=== PATIENT | male | born 1985 | race Two or more races ===

== ENCOUNTER 2022-12-07 10:36 | Outpatient (REF) | payer MEDICAID, SELFPAY ==
[2022-12-07 15:13] LABS: CT PCR NOT DETECTED (Not Detect.); NG PCR NOT DETECTED (Not Detect.)
[2022-12-10 13:33] LABS: RPR Rapid Plasma Reagin NON-REACTIVE (NON-REACTIVE)
[2022-12-11 15:48] LABS: HIV RNA PCR Qn Copies Not Detected Copies/mL; HIV RNA PCR Qn Log Copies Not Detected Log cps/mL
== END 2022-12-07 10:37 | disposition home or self-care (01) ==
LOC: HO.HHCL 10:36
PROVIDERS: Visit Provider Nurse Practitioner Family
DX: Z11.4 Encounter for screening for human immunodeficiency virus [HIV] (principal); Z11.3 Encounter for screening for infections with a predominantly sexual mode of transmission
CPT/HCPCS: 0353U; 86592; 87536; 87900

== ENCOUNTER 2024-06-20 16:06 | Emergency (ER) | payer MEDICAID, SELFPAY ==
--- NOTE | ~2024-06-20 | XR_ITS ---
CLINICAL HISTORY: pain, injury Radiographs of the right ankle, 3 views Comparison: None Findings: There is no acute fracture or dislocation. 7 mm well corticated ossific fragment distal to the medial malleolus. 5 mm well corticated ossific fragment distal to the medial malleolus. The ankle mortise is congruent. Mild degenerative change. Enthesophyte at the insertion of the Achilles tendon. Bone mineralization is normal. There is a joint effusion. Soft tissue swelling. Impression: No acute fracture. This document has been electronically signed by: Angela Saldivar MD on 06/20/2024 17:30:00
--- NOTE | 2024-06-20 16:21 | ED.GENADULT ---
HPI - General Adult General Chief complaint: Extremity Injury, Lower Stated complaint: R ankle pain x2days Time Seen by Provider: 06/20/24 16:41 Source: patient, family (girlfriend) and EMS Mode of arrival: EMS Limitations: no limitations History of Present Illness ED Provider: JOSEMANUEL DANIEL PA-C HPI narrative: 39 year-old male presents to the ED today via EMS for evaluation of right ankle pain x 2 days. Patient reports pain to the entire ankle, radiating up the leg. Worse with weight-bearing and movement of the ankle. Denies any blunt injury or trauma however symptoms did begin after helping a friend move furniture for 3 days straight when he typically is not active. He has been trying Tylenol without relief. Last dose yesterday. Admits to drinking a large amount of alcohol recently. Denies any history of gout or diabetes. Denies fever, headache, dizziness, numbness/tingling/weakness of the LUE. Denies hx of hardware in the ankle. Denies hx of IVDU. Related Data Previous Rx's ?Medication ?Instructions ?Recorded naproxen 500 mg tablet 500 mg PO Q12H PRN pain (scale 06/20/24 score 1-3) #20 tabs prednisone 20 mg tablet 60 mg (3 x 20 mg) PO DAILY 5 days 06/20/24 #15 tabs Allergies Allergy/AdvReac Type Severity Reaction Status Date / Time No Known Allergies Allergy Verified 06/20/24 16:23 Review of Systems Review of Systems: Yes all other systems are reviewed and are negative PMFSH Past Medical History Attestation statement: The following information was validated with the patient. Source: old records reviewed and nursing notes reviewed Social History Social History Advance Directives: No Advance Directives Information Provided: No Physical Exam ED Vital Signs: Vital Signs - 24 hr 06/20/24 16:22 06/20/24 18:00 Temperature 97.3 F 97.3 F Pulse Rate 70 61 Respiratory Rate 20 16 Blood Pressure 121/74 134/57 L Pulse Oximetry 97 96 Oxygen Delivery Method Room Air Room Air BMI result Body Mass Index 36.9 Afebrile, vital signs stable General: Well appearing, in no acute distress. Skin: Warm, dry, intact. No rashes or lesions. Head: Normocephalic, atraumatic. EENT: Hearing is intact b/l. Conjunctiva clear. Sclera is anicteric. Neck: Supple without LAD. ? Cardiac: Chest wall symmetric. RRR. Lungs: Normal respiratory effort without accessory muscle use. CTA bilaterally. Abdomen: Soft, non-tender, non-distended. No rebound tenderness or guarding. Positive BS x4. Ext: +noted swelling to entire right ankle. No overlying erythema. Limited ROM to flexion/extension secondary to pain. Diffusely tender to palpation without warmth, fluctuance or crepitus. 2+ DP pulse on right foot. negative villagomez test. no calf tenderness. Neuro: AOx3. Normal speech. Course Course Course Narrative: RME performed by Nuvia Conde PA-C. Patient is a 39 year old assigned male at presenting to the emergency department with right ankle pain. Patient states that over the last 2 days he has had right ankle pain after helping someone move. Detailed physical exam and review of systems are deferred to the assistant center director. Imaging ordered. Patient placed back in the waiting room pending room availability and results. Reevaluation(s) Reevaluation #1: Leukocytosis to 17.6 without left shift. No anemia. H&H stable. Chemistry without acute electrolyte abnormality requiring intervention. Uric acid elevated to 7.8. CRP elevated to 2.55. ESR WNL. X-ray right ankle without acute fracture or dislocation. There are 2 well corticated ossific fragments distal to the medial malleoli with mild degenerative changes with associated joint effusion and soft tissue swelling. > physical exam is not consistent with cellulitis or septic joint. he does not have any risk factors for infection I have suspicion that patient is having an acute gout flare. treated with toradol in ED today. tone wrap applied to right ankle. will start patient on presnidone and naproxen. advised PCP follow up. Patient has remained stable throughout ED visit today. Discussed worrisome signs and symptoms and when to return to the ED. All questions answered at this time. Patient is agreeable with disposition and stable for discharge. Medications Administered Discontinued Medications Generic Name Dose Route Start Last Admin Trade Name Freq PRN Reason Stop Dose Admin Ketorolac Tromethamine 30 mg 06/20/24 17:12 06/20/24 17:22 Ketorolac Tromethamine 30 Mg/Ml Vial IM 06/20/24 17:13 30 mg ONCE ONE Administration Procedures Orthopedic Splinting/Casting Injury #1: Side: left Lower Extremity Injury Location: ankle Lower Extremity Immobilizer: Tone wrap Medical Decision Making Medical Decision Making [facility] Narrative: 39 year-old male presents to the ED today via EMS for evaluation of right ankle pain x 2 days. Vital signs stable, afebrile. he is nontoxic appearing and in NAD. On exam, noted swelling to entire right ankle. No overlying erythema. Limited ROM to flexion/extension secondary to pain. Diffusely tender to palpation without warmth, fluctuance or crepitus. 2+ DP pulse on right foot. ambulating with limping gait. negative villagomez test. no calf tenderness. Differential diagnosis includes gout, pseuogout, arthritis, tendonitis, fracture, dislocation, msk sprain/strain. Unlikely septic joint, lyme arthritis, NV compromise, threat to limb, compartment syndrome, DVT. Will obtain screening labs/ uric acid, xr. Toradol ordered for pain control. Differential Diagnosis Differential Diagnoses: The differential diagnosis associated with the presentation includes as above. Admission/Observation not indicated. Lab Data [facility] Lab Attestation statement: I reviewed the patient's lab results. as above. 06/20/24 17:29 06/20/24 17:29 Labs: Lab Results 06/20/24 Range/Units 17:29 WBC 17.6 H (4.8-10.8) X10*3/uL RBC 5.49 (4.60-5.80) X10*6/uL Hgb 16.0 (14.0-18.0) g/dl Hct 44.1 (42.0-52.0) % MCV 80.3 (80.0-98.0) fL MCH 29.1 (27.0-33.0) pg MCHC 36.3 H (31.0-36.0) g/dl RDW 12.4 (11.0-16.0) % Plt Count 211 (160-400) X10*3/uL MPV 9.7 (9.4-12.4) fL Immature Gran % (Auto) 0.3 (0.0-0.4) % Neut % (Auto) 76.0 H (45-73) % Lymph % (Auto) 14.7 L (20-40) % Woodruff % (Auto) 8.3 (2-11) % Eos % (Auto) 0.5 (0-4) % Baso % (Auto) 0.2 (0-2) % Lymph # (Auto) 2.6 (1.2-4.9) X10*3/uL Woodruff # (Auto) 1.5 H (0.1-1.2) X10*3/uL Eos # (Auto) 0.1 (0.0-0.4) X10*3/uL Baso # (Auto) 0.0 (0.0-0.2) X10*3/uL Abs Immat Gran (auto) 0.06 H (0.00-0.03) X10*3/uL Absolute Neuts (auto) 13.3 H (2.0-8.3) x10*3/uL Absolute Nucleated RBC 0.000 (0.0-0.012) X10*3/uL Nucleated RBC % (auto) 0.0 (0.0-0.2) /100WBC ESR 2 (0-15) MM/HR Sodium 138 (135-145) mmol/L Potassium 3.9 (3.3-5.1) mmol/L Chloride 105 (96-108) mmol/L Carbon Dioxide 23 (22-29) mmol/L Anion Gap 14 (12-20) BUN 10 (9-16) mg/dL Creatinine 0.82 (0.5-1.4) mg/dL Estim Creat Clear Calc 150.1 Estimated GFR > 60 Random Glucose 96 (60-115) mg/dL Uric Acid 7.8 H (3.4-7.0) mg/dL Calcium 9.2 (8.4-10.2) mg/dL Total Bilirubin 1.3 H (0.0-1.0) mg/dL AST 25 (5-37) U/L ALT 46 H (0-40) U/L Alkaline Phosphatase 74 (39-117) U/L C-Reactive Protein 2.55 H (< or = 0.50) mg/dL Total Protein 7.2 (6.5-8.0) g/dL Albumin 4.1 (3.5-5.0) g/dL Independent Interpretation I performed an independent interpretation of an: Plain X-Ray Interpretation: xr right ankle without fracture Radiology Impression Discussion of test interpretation with radiology: I have reviewed the radiologist's reading. Radiologist Impression: Procedure(s): XR ankle RT min 3V Accession Number(s): [id number] cc: Nuvia Conde; Physician,Unknown ~ CLINICAL HISTORY: pain, injury Radiographs of the right ankle, 3 views Comparison: None Findings: There is no acute fracture or dislocation. 7 mm well corticated ossific fragment distal to the medial malleolus. 5 mm well corticated ossific fragment distal to the medial malleolus. The ankle mortise is congruent. Mild degenerative change. Enthesophyte at the insertion of the Achilles tendon. Bone mineralization is normal. There is a joint effusion. Soft tissue swelling. Impression: No acute fracture. This document has been electronically signed by: Angela Saldivar MD on 06/20/2024 17:30:00 Independent Historian Clinical information obtained from an independent historian. History obtained from or confirmed by: EMS External Record Review External record reviewed: Inpatient record Prescription Management I considered prescription management with: Pain Medication (Naproxen) and Other (Prednisone) Social Determinants Patient?s care significantly limited by Social Determinants of Health including: Other Social Determinant of Health Discharge Plan Discharge Clinical Impression: Gout Patient Disposition: Home, Self-Care Instructions: Low Purine Diet (ED), Gout (ED) Additional Instructions: You were evaluated in the ED today for your right ankle pain. Your work up is concerning for gout. See home care instructions. I am starting you on prednisone. This is a steroid. Take this to completion over the next 5 days. If you are diabetic, please monitor your sugars at home as this can elevate them. Treatment for this is also with NSAIDs (anti-inflammatory medications). I am sending naproxen to your pharmacy. Do not take this with other NSAIDs such as Motrin as this can cause increased risk of GI bleeding. Follow up with your PCP. Return with new or worsening symptoms. In the case of an emergency, call 911. Prescriptions: New naproxen 500 mg tablet 500 mg PO Q12H PRN (Reason: pain (scale score 1-3)) Qty: 20 0RF prednisone 20 mg tablet 60 mg PO DAILY 5 Days Qty: 15 0RF Referrals: Physician,Unknown J [Primary Care Provider] - Interventions: ED Discharge Assessment Last Done: 06/20/24 19:02 Discharge Date/Time: 06/20/24 19:02 Print Language: Vietnamese
[2024-06-20 16:22] VITALS: BP 121/74; PULSE 70; RESP 20; TEMP 36.3; O2SAT 97; BMI 36.9
--- OUTSIDE RECORDS SUMMARY | 2024-06-20 16:50 | XMS_ITS | Clinical Summary ---
Author Organization [facility] Address [address] [place] [address] Care Team Providers Care Segmental Paving Supervisor Name Role Phone Nikki Vickers MD Primary Care Provider [phone] Allergies Active Allergy Reactions Criticality Noted Date Comments Honey Bee Venom Swelling 08/15/2022 Medications losartan (Cozaar) 25 MG tabletIndications :Elevated BP without diagnosis of hypertension Take 1 tablet (25 mg) by mouth in the morning. 30 tablet 11 12/07/2022 Active Blood Pressure Monitoring (Comfort Touch BP Cuff/Large) miscIndications:E levated BP without diagnosis of hypertension 1 kit 2 times daily. 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 Pulmonary nodule 04/11/2022 Overview (04/11/2022): 03/2022 Incidental finding RLL 2mm nodule repeat in 12 months Encounters Date Type Department Care Team Description 04/24/2024 Population Health Risk Score [facility] (C[facility]) Department [address] [id number] Provider, Population Health Generic from Last 3 Months Immunizations Name Administration Dates Next Due Tdap 06/15/2020 Family History Medical History Relation Name Comments Diabetes type II Brother Diabetes type II Maternal Grandfather Lung cancer Maternal Grandmother Hyperlipidemia Mother Sleep apnea Mother Thyroid disease Mother Relation Name Status Comments Brother Maternal Grandfather Maternal Grandmother Mother Social History Tobacco Use Types Packs/Day Years Used Date Smoking Tobacco: Some Days Cigarettes Passive Smoke Exposure: Current Smokeless Tobacco: Never Tobacco Cessation:Ready to Q uit: Not Asked; Counseling Given: Not Answered Comments:Occasional cigarettes Alcohol Use Standard Drinks/Week Comments Yes 0 (1 standard drink = 0.6 oz pur e alcohol) Depression Answer Date Recorded Patient Health Questionnaire-9 Score 9 08/15/2022 Housing Stability Answer Date Recorded What is your housing situation today? I do not have housing (Staying with others, in a hotel, in a halfway, living outside on the street, on a beach, in a car, or in a park 11/19/[address] you li ve. Do you have problems with any of the following? None of the above 11/19/2022 Food Insecurity Answer Date Recorded Within the past 12 months, y ou worried that your food would run out before you got money to buy more: Sometimes True 2022 Within the past 12 months,th e food you bought just didn't last and you didn't have enough money to get more: Sometimes True 12/07/2022 Transportation Answer Date Recorded In the past 12 months, has l ack of transportation kept you from medical appts, meetings, work or from getting things needed for daily living? Yes, it has kept me from non-medical meetings, work, or getting things that I need 11/19/2022 Utilities Answer Date Recorded In the past 12 months, has t he electric, gas, oil or water company threatened to shut off services in your home? No 12/07/2022 Depression Answer Date Recorded Patient Health Questionnaire-2 Score 2 08/15/2022 Sex and Gender Information Value Date Recorded Sex Assigned at Male 04/11/2022 9:38 AM EST Legal Sex Male 9:31 AM EST Gender Identity Male 04/11/2022 9:38 AM EST Sexual Orientation Straight 04/11/2022 9: 38 AM EST Last Filed Vital Signs Vital Sign Reading Time Taken Comments Blood Pressure 152/106 12/07/2022 10:01 AM EDT Pulse 60 12/07/2022 10:01 AM EDT Temperature 36.8 ??C (98.2 ??F) 08/15/2022 2:51 PM ED T Respiratory Rate 20 12/07/2022 10:01 AM EDT Oxygen Saturation 98% 12/07/2022 10:01 AM EDT Inhaled Oxygen Concentration - - Weight 110 kg (243 lb) 12/07/2022 10:01 AM EDT Height 175.3 cm (5' 9 ) 12/07/2022 10:01 AM EDT Body Mass Index 35.88 12/07/2022 10:01 AM EDT Plan of Treatment Health Maintenance Due Date Last Done Comments HIV Screening 1985 Lipid Panel 1985 Alcohol/Substance Use Screening 1997 Family Planning (PISQ) 2000 Hepatitis C Screening 05/05/2003 Hepatitis B Vaccines (1 of 3 - 19+ 3-dose series) 2004 Pneumococcal Vaccine: Pediatrics (0 to 5 Years) and At-Risk Patients (6 to 49) Years) (1 of 2 - PCV) 2004 Depression Monitoring 02/15/2023 08/15/2022 , 08/15/2022 Depression Screening 08/16/2023 08/15/2022, 08/15/2022 SDOH Screening 08/16/2023 08/15/2022 COVID-19 Vaccine (1 - 2023-2 5 season) 2023 Influenza Vaccine (#1) 2023 Tobacco Screening 12/08/2023 12/07/2022 DTaP/Tdap/Td Vaccines (2 - T d or Tdap) 06/15/2030 06/15/2020 Zoster Vaccines (1 of 2) 05/05/2035 RSV Patients and Patients Aged 60 years or older (1 - 1-dose 75+ series) 2060 HIB Vaccines Aged Out No longer eligi ble based on patient's age to complete this topic HPV Vaccines Aged Out No longer eligi ble based on patient's age to complete this topic Hepatitis A Vaccines Aged Out No long er eligible based on patient's age to complete this topic IPV Vaccines Aged Out No longer eligi ble based on patient's age to complete this topic Meningococcal Vaccine Aged Out No [place] eligible based on patient's age to complete this topic RSV under 20 months Aged Out No longe r eligible based on patient's age to complete this topic Rotavirus Vaccines Aged Out No longer eligible based on patient's age to complete this topic Insurance [facility] C[facility] Care Teams Segmental Paving Supervisor Relationship Specialty Start Date End Date Nikki Vickers MD [address] [place] [id number] PCP - General Family Medicine 10/15/23
--- OUTSIDE RECORDS SUMMARY | 2024-06-20 16:51 | XMS_ITS | Encounter Summary ---
Author Organization [facility] Address [address] [place] [address] Care Team Providers Care Associate Software Development Engineer Name Role Phone Migdalia Khan Primary Care Provider [phone] Nikki Vickers MD Primary Care Provider [phone] Reason for Visit * Reason Onset Date Comments Other 07/04/2022 Encounter Details Date Type Department Care Team (Late st Contact Info) Description 07/04/2022 Telephone [facility] MEDICINE [address] [place] [address] Yobany Hawkins FNP Other Social History Tobacco Use Types Packs/Day Years Used Date Smoking Tobacco: Never Smokeless Tobacco: Never Sex and Gender Information Value Date Recorded Sex Assigned at Male 04/11/2022 9:38 AM EST Legal Sex Male 9:31 AM EST Gender Identity Male 04/11/2022 9:38 AM EST Sexual Orientation Straight 04/11/2022 9: 38 AM EST documented as of this encounter Miscellaneous Notes * Telephone Encounter - Fabiola Tee RN - 07/04/2022 9:20 AM EDT TC placed to pt at [phone] regarding message below. Pt reports I received phone call from them (referring to [facility]) telling me to go to local pharmacy to spanish moss picker medication and they told me I needed a prescription. TC placed to [facility] US department at [phone] inquiring on rx needed. Per Rosemarie, usually have pt take an enema the morning of which pt can by OTC and informed RN, no documentation of appts past or future. TC placed to pt to informed pt to call [facility] US at [phone] regarding appt and informed pt it is an OTC enema. Pt verbalized understanding. Pt then reporting he requested to go somewhere else for US because it was far from his house. RN informed it might have been booked due to insurance but RN will send message to proper team. Pt verbalized understanding. Pt reports he was supposed to receive a call in a couple days for new patient appt and didn't. Pt agrees tonext available new pt appt on Monday August 15, 2022 at 2:45PM with Migdalia Khan WEAVING INSPECTOR on [facility],second floor. Pt to F/U as needed. RN will forward message to [facility] specialist regarding request to go somewhere else. Tc from patient requesting a script for liquid that pt has to take 2 hours prior to US Prostate transrectal order due to C being out of medication. Patient states he has had to r/s appt twice due to the same issue. Please advise. * Telephone Encounter - Yoli Gupta - 07/04/2022 8:07 AM EDT Tc from patient requesting a script for liquid that pt has to take 2 hours prior to US Prostate transrectal order due to C being out of medication. Patient states he has had to r/s appt twice due to the same issue. Please advise. documented in this encounter Plan of Treatment Not on file documented as of this encounter Visit Diagnoses Not on filedocumented in this encounter Care Teams Associate Software Development Engineer Relationship Specialty Start Date End Date Migdalia Khan FNP [address] [place] [address] PCP - General Family Medicine 08/15/22 10/14/23 Nikki Vickers MD [address] [place] [address] PCP - General Family Medicine 10/15/23 documented as of this encounter
[2024-06-20] MEDS: Ketorolac Tromethamine 30 MG/ML VIAL IM (17:22)
[2024-06-20 17:34] LABS: MANUAL DIFF FLAG NO
[2024-06-20 17:35] LABS: Basophils Percent Auto 0.2 % (0-2); Eosinophils Absolute Auto 0.1 X10*3/uL (0.0-0.4); Eosinophils Percent Auto 0.5 % (0-4); Hematocrit 44.1 % (42.0-52.0); Imm Gran Abs Auto 0.06 X10*3/uL (0.00-0.03); Imm Gran Pct Auto 0.3 % (0.0-0.4); Lymphocytes Absolute Auto 2.6 X10*3/uL (1.2-4.9); Lymphocytes Percent Auto 14.7 % (20-40); Mean Corpuscular HGB Conc 36.3 g/dl (31.0-36.0); Mean Corpuscular Hemoglobin 29.1 pg (27.0-33.0); Mean Corpuscular Volume 80.3 fL (80.0-98.0); Mean Platelet Volume 9.7 fL (9.4-12.4); Monocytes Absolute Auto 1.5 X10*3/uL (0.1-1.2); Monocytes Percent Auto 8.3 % (2-11); Neutrophils Absolute Auto 13.3 x10*3/uL (2.0-8.3); Platelet Count 211 X10*3/uL (160-400); Red Blood Count 5.49 X10*6/uL (4.60-5.80); Red Cell Distribution Width 12.4 % (11.0-16.0); White Blood Count 17.6 X10*3/uL (4.8-10.8)
[2024-06-20 17:51] LABS: Alanine Aminotransferase 46 U/L (0-40); Albumin Level 4.1 g/dL (3.5-5.0); Alkaline Phosphatase 74 U/L (39-117); Anion Gap 14 (12-20); Aspartate Amino Transferase 25 U/L (5-37); Bilirubin Total 1.3 mg/dL (0.0-1.0); Blood Urea Nitrogen 10 mg/dL (9-16); C Reactive Protein 2.55 mg/dL (< or = 0.50); Calcium 9.2 mg/dL (8.4-10.2); Carbon Dioxide 23 mmol/L (22-29); Chloride 105 mmol/L (96-108); Creatinine Clr Calc Pharmacy 150.1; Estimated Glomerular Filt Rate > 60; Glucose Random 96 mg/dL (60-115); Potassium 3.9 mmol/L (3.3-5.1); Sodium 138 mmol/L (135-145); Total Protein 7.2 g/dL (6.5-8.0)
[2024-06-20 18:00] VITALS: BP 134/57; PULSE 61; RESP 16; TEMP 36.3; O2SAT 96
[2024-06-20 18:04] LABS: Uric Acid 7.8 mg/dL (3.4-7.0)
[2024-06-20 18:31] LABS: Erythrocyte Sedimentation Rate 2 MM/HR (0-15)
[2024-06-20 19:02] VITALS: BP 134/57; PULSE 61; RESP 16; TEMP 36.3; O2SAT 96
== END 2024-06-20 19:02 | disposition home or self-care (01) ==
PROVIDERS: Physician Assistant Medical; Emergency Provider Emergency Medicine Emergency Medical Services
DX: M10.071 Idiopathic gout, right ankle and foot (principal); M79.604 Pain in right leg; Z79.899 Other long term (current) drug therapy
CPT/HCPCS: 36415; 73610; 80053; 84550; 85025; 85652; 86140; 96372; 99284; J1885

== ENCOUNTER → 2024-06-20 16:23 | Outpatient (BNV) | payer SELFPAY | PROVIDERS: Emergency Provider Emergency Medicine Emergency Medical Services; Visit Provider Radiology Diagnostic Radiology | DX: S99.911A Unspecified injury of right ankle, initial encounter (principal); M25.571 Pain in right ankle and joints of right foot | CPT/HCPCS: 73610 ==